=== PATIENT | female | born 1995 | race Caucasian/White ===

== ENCOUNTER 2020-11-08 12:26 | Emergency (ER) | payer BC, SELFPAY ==
[2020-11-08 12:45] VITALS: BP 134/83; PULSE 93; RESP 18; TEMP 36.9; O2SAT 97
--- NOTE | 2020-11-08 12:45 | ED.GENADULT ---
HPI - General Adult General Chief complaint: Headache Stated complaint: Headache Time Seen by Provider: 11/08/20 12:28 Source: patient Mode of arrival: ambulatory Limitations: no limitations History of Present Illness HPI narrative: Patient presents for evaluation of headache. She indicates symptoms started 3 days ago and have progressively worsened since that time. She initially had pain in the frontal and bilateral temporal regions but now has pain globally throughout the entire head. She is a current pain is 8-1/2 out of 1-10 in severity. She describes the pain as pressure . She denies any photophobia and phonophobia. She reports nausea and episode of vomiting yesterday. She has a hx of headaches but states that she has not spoken with her primary provider re: her symptoms. She has taken ibuprofen and tylenol without significant reduction in her pain. Denies any neurological changes. LMP 3 days ago. Related Data Home Medications Medication Instructions Recorded Confirmed zolpidem 11/08/20 Allergies Allergy/AdvReac Type Severity Reaction Status Date / Time pineapple Allergy Severe THROAT Verified 11/08/20 12:55 SWELLS coconut Allergy Mild HIVES Verified 11/08/20 12:55 amoxicillin Allergy Unknown Unknown Verified 11/08/20 12:55 clavulanic acid Allergy Unknown Unknown Verified 11/08/20 12:55 Review of Systems Review of Systems: Narrative: CONSTITUTIONAL: Denies fever, chills, or sweats. EYES: Denies visual changes, redness, or discharge. ENT: Denies rhinorrhea, congestion, sore throat, or otalgia. CARDIOVASCULAR: Denies chest pain, palpitations, or edema. RESPIRATORY: Denies cough or dyspnea. GASTROINTESTINAL: Denies abdominal pain, nausea, vomiting, or diarrhea. GENITOURINARY: Denies dysuria or hematuria. SKIN: Denies rash or itching. MUSCULOSKELETAL: Denies back pain, joint pain, or myalgia. NEUROLOGIC:Reports headaches. Denies numbness, dizziness, or weakness. PSYCHIATRIC: Denies anxiety or depression. [facility] Past Medical History Medical History Chronic headaches Family History Family History (Updated 11/08/20 @ 12:47 by Kevin Lance, SHREYA, LISANDRA) Mother No pertinent family history Social History Social History Alcohol intake: current Alcohol use details: Rare Additional living arrangements comments: significant other Gender identity (if verbalized by the patient): Female Spiritual care concerns: No Exam Narrative: Exam Narrative: GENERAL: Well-appearing, well-nourished, and in no acute distress. HEAD: Normocephalic, atraumatic. EYES: PERRLA and EOMI. ENT: Nares clear, no rhinorrhea or epistaxis. Mucous membranes moist. Oropharynx without tonsillar hypertrophy exudate or other lesions. Bilateral TMs pearly stanley nonbulging NECK: Supple. No adenopathy or masses. No carotid bruits or JVD CHEST: Clear to auscultation. No respiratory distress. No wheezes rales or rhonchi HEART: Regular rate and rhythm. No murmur heard. Normal peripheral pulses. ABDOMEN: Soft, nontender, nondistended, normal active bowel sounds. EXTREMITIES: Normal range of motion. No edema. SKIN: Warm, dry, no rash. NEURO: No focal deficits. Alert and oriented x3. Normal finger-nose exam, able to perform rapid alternating movements without difficulty. Comprehensive neurological exam intact. PSYCH: Normal mood and affect. Course Course Emergency Course: This is a 24-year-old female with history of headaches who presented with 3-day history of headache. She was neurologically intact on exam. She was given Fioricet, Reglan, Benadryl and IV fluids. On reassessment her pain decreased to 4 out of 10 in severity. I did offer her CT scan, which she declined. I think this is reasonable as she has a hx of headaches and symptoms have been present for three days. She was advised to follow up wi
[2020-11-08] MEDS: SODIUM CHLORIDE 0.9% IV 1,000 ML 999 ML IV CONT (13:06)
[2020-11-08] MEDS: diphenhydrAMINE HCl INJ 50 MG/ML VIAL 25 MG IV PUSH (13:09)
[2020-11-08] MEDS: METOCLOPRAMIDE HCL INJ 10 MG/2 ML VIAL IV PUSH (13:09)
[2020-11-08 14:33] VITALS: BP 114/80; PULSE 67; RESP 18; TEMP 36.3; O2SAT 99
== END 2020-11-08 14:33 | disposition home or self-care (01) ==
PROVIDERS: Emergency Provider Nurse Practitioner; PCP Family Medicine
DX: R51.9 Headache, unspecified (principal)
CPT/HCPCS: 96361; 96374; 96375; 99284; A9270; J1200; J2765; J7030

== ENCOUNTER 2021-01-27 15:12 | Emergency (ER) | payer BC, SELFPAY ==
--- NOTE | ~2021-01-27 | CT_ITS ---
EXAMINATION: CT abdomen pelvis w con EXAM DATE: 01/27/2021 22:21 INDICATION: Right lower quadrant pain. TECHNIQUE: Spiral CT of the abdomen and pelvis was performed following intravenous injection of 100 m L Omnipaque 350. Axial, coronal and sagittal images of the abdomen and pelvis were reviewed. The do se-length product (DLP) for this examination was 1063.59 mGy-cm. The exposure was tailored according to patient size (auto mA exposure control), and iterative reconstruction (ASIR) was used as addition al dose reduction technique. There is no prior study for comparison. FINDINGS: The liver, spleen, adrenal glands and pancreas are unremarkable. Gallbladder is unremarkab le. No biliary obstruction. Portal and splenic veins are patent. Kidneys enhance symmetrically. T here is no hydronephrosis. There is IUD which appears to be centrally located within the endometriu m, expected position. The bladder is unremarkable. There is no retroperitoneal or pelvic lymphadeno katie. The appendix is normal. The stomach and small bowel are unremarkable. There is expected amount of c olonic stool. No free intraperitoneal gas. The heart is normal in size. There are no pericardial or pleural effusions. The lung bases are unremarkable. There are no osteoblastic or osteolytic les ions identified. Chronic left L5 spondylolysis. No spondylolisthesis. IMPRESSION: 1. No acute intra-abdominal findings. Reviewed, dictated and finalized at location A.
[2021-01-27 15:15] VITALS: BP 134/89; PULSE 89; RESP 18; TEMP 36.4; O2SAT 98
[2021-01-27 15:32] LABS: Basophils Absolute Auto 0.1 K/mm3 (0.0-0.1); Basophils Percent Auto 0.7 % (0.2-1.2); Eosinophils Absolute Auto 0.1 K/mm3 (0-0.3); Eosinophils Percent Auto 1.2 % (0-4.4); Hematocrit 39.1 % (37.0-47.0); Hemoglobin 12.4 g/dL (12.0-15.0); Immature Granulocyte Absolute 0.03 K/mm3 (0.00-0.031); Immature Granulocyte Percent A 0.3 % (0-0.5); Lymphocytes Percent Auto 31.5 % (18.3-44.2); Mean Corpuscular HGB Conc 31.7 g/dl (32-36); Mean Corpuscular Hemoglobin 27.8 pg (26-34); Mean Corpuscular Volume 87.7 fl (80-100); Mean Platelet Volume 9.7 fl (7.4-10.4); Monocytes Absolute Auto 0.3 K/mm3 (0.1-0.6); Monocytes Percent Auto 3.8 % (2.6-8.5); Neutrophils Absolute Auto 5.6 K/mm3 (1.3-6.7); Neutrophils Percent Auto 62.5 % (45.5-73.1); Platelet Count Result 431 k/mm3 (150-375); Red Blood Count 4.46 M/mm3 (4.2-5.4); Red Cell Distribution Width 13.2 % (11.5-14.5); White Blood Count 8.9 K/mm3 (4.5-10.0)
[2021-01-27 15:42] LABS: Alanine Aminotransferase 21 U/L (4-35); Albumin Level 4.6 g/dL (3.5-5.1); Alkaline Phosphatase 80 U/L (38-126); Anion Gap 8 mmol/L (8-16); Aspartate Amino Transferase 21 U/L (14-36); Bilirubin,Total 0.3 mg/dL (0.2-1.3); Blood Urea Nitrogen 9 mg/dL (7-17); Carbon Dioxide 29 mmol/L (22-30); Chloride 103 mmol/L (98-107); Estimated CRCL calculation 112 ml/min; Estimated Glomerular Filt Rate > 60; Glucose 134 mg/dL (65-105); Lipase 120 U/L (23-300); Potassium 4.3 mmol/L (3.4-5.0); Sodium 140 mmol/L (137-145)
[2021-01-27 18:59] VITALS: BP 127/84; PULSE 68; RESP 18; O2SAT 100
--- NOTE | 2021-01-27 19:01 | PC.NURSE ---
patient attempting to give urine sample at this time.
--- NOTE | 2021-01-27 19:24 | ED.GENADULT ---
HPI - General Adult General Chief complaint: Abdominal Pain <Hany Gardner PA-C - Last Filed: 01/27/21 20:38> Stated complaint: pelvic pain <Hany Gardner PA-C - Last Filed: 01/27/21 20:38> Time Seen by Provider: 01/27/21 18:56 <ALIX Huizar Last Filed: 01/27/21 20:38> Source: patient <ALIX Huizar Last Filed: 01/27/21 20:38> Mode of arrival: ambulatory <Hany Gardner PA-C - Last Filed: 01/27/21 20:38> Limitations: no limitations <Hany Gardner PA-C - Last Filed: 01/27/21 20:38> History of Present Illness HPI narrative: Patient is a 25-year-old female who presents with a right lower quadrant abdominal pain that has been present for last couple of days patient notes 8 out of 10 pain in the right lower quadrant that radiates across the abdomen patient denies fever chills nausea vomiting patient took ibuprofen with minimal improvement today presents per private vehicle appears uncomfortable but not distressed <Hany Gardner PA-C - Last Filed: 01/27/21 20:38> Related Data Home medications: Home Medications Medication Instructions Recorded Confirmed zolpidem 11/08/20 <Hany Gardner PA-C - Last Filed: 01/27/21 20:38> Allergies/adverse reactions: Allergies Allergy/AdvReac Type Severity Reaction Status Date / Time pineapple Allergy Severe THROAT Verified 01/27/21 19:01 SWELLS coconut Allergy Mild HIVES Verified 01/27/21 19:01 amoxicillin Allergy Unknown Unknown Verified 01/27/21 19:01 clavulanic acid Allergy Unknown Unknown Verified 01/27/21 19:01 <Hany Gardner PA-C - Last Filed: 01/27/21 20:38> Review of Systems Review of Systems: All systems reviewed & are unremarkable except as noted in HPI and below <Hany Gardner PA-C - Last Filed: 01/27/21 20:38> [facility] Past Medical History Medical History: Medical History Chronic headaches <ALIX Huizar Last Filed: 01/27/21 20:38> Family History Family History: Family History (Updated 11/08/20 @ 12:47 by Kevin Lance, [facility], ) Mother No pertinent family history <Hany Gardner PA-C - Last Filed: 01/27/21 20:38> Social History Social History: Social History Alcohol intake: current Alcohol use details: Rare Additional living arrangements comments: significant other Gender identity (if verbalized by the patient): Female Spiritual care concerns: No <Hany Gardner PA-C - Last Filed: 01/27/21 20:38> Exam Narrative: Exam Narrative: GENERAL: Well-appearing, obese, and in no acute distress. HEAD: Normocephalic, atraumatic. EYES: PERRLA and EOMI. ENT: Nares clear, no rhinorrhea or epistaxis. Mucous membranes moist. CHEST: Clear to auscultation. No respiratory distress. No wheezes rales or rhonchi HEART: Regular rate and rhythm. No murmur heard. Normal peripheral pulses. ABDOMEN: Soft, right lower quadrant tenderness to palpation, nondistended, normal active bowel sounds. EXTREMITIES: Normal range of motion. No edema. SKIN: Warm, dry, no rash. NEURO: No focal deficits. Alert and oriented x3. PSYCH: Normal mood and affect. <Hany Gardner PA-C - Last Filed: 01/27/21 20:38> Course Course Emergency Course: Patient in the room at this time no distress will have CT imaging potential for urinary tract infection at this time however there is moderate squamous cells patient is aware of this <Hany Gardner PA-C - Last Filed: 01/27/21 20:38> Reevaluation(s) Reevaluation #1: Assumed care from BILLIE Gardner pending CT. <Yessica Rausch MD - Last Filed: 01/27/21 23:38> Date: 01/27/21 <Yessica Rausch MD - Last Filed: 01/27/21 23:38> Time: 21:30 <Yessica Rausch MD - Last Filed: 01/27/21 23:38> Reevaluation #2: Discussed with patient about CT results, labs resul
[2021-01-27 20:07] LABS: Add Urine Microscopic? YES; Appearance Urine Cloudy (Clear); Bacteria Urine Trace /hpf; Bilirubin Urine Negative (Negative); Blood Urine 2+ (Negative); Color Urine Yellow (Yellow); Glucose Urine UA Negative (Negative); Ketones Urine Negative (Negative); Leukocyte Esterase Ur 3+ LEU/UL (Negative); Mucus Urine Rare /lpf; Nitrate Urine Negative (Negative); Protein Urine Negative (Negative); Specific Grav Ur 1.016 (1.001-1.035); Squamous Epithelial Cell Urine Many /hpf (Few); Urobilinogen Urine Negative mg/dL (<2.0); WBC Urine 51-75 /hpf
[2021-01-27] MEDS: FAMOTIDINE 20 MG/2 ML VIAL IV PUSH (20:44)
[2021-01-27] MEDS: KETOROLAC 30 MG/ML VIAL (*BKC) IV PUSH (20:44)
[2021-01-27] MEDS: SODIUM CHLORIDE 0.9% IV 1,000 ML 999 ML IV CONT (20:47)
[2021-01-27 20:48] VITALS: BP 124/74; PULSE 64; O2SAT 100
[2021-01-27 23:04] VITALS: BP 111/73; PULSE 72; O2SAT 100
[2021-01-27] MEDS: DICYCLOMINE HCL INJ 20 MG/2 ML VIAL IM (23:15)
[2021-01-28 00:03] VITALS: BP 99/63; PULSE 69; RESP 14; O2SAT 100
== END 2021-01-28 00:02 | disposition home or self-care (01) ==
PROVIDERS: Emergency Medicine; Emergency Provider Emergency Medicine; PCP Family Medicine
DX: N39.0 Urinary tract infection, site not specified (principal); R10.31 Right lower quadrant pain
CPT/HCPCS: 36415; 74177; 80053; 81001; 81025; 83690; 85025; 87086; 87088; 96361; 96372; 96374; 96375; 99284; J0500; J1885; J7030; Q9967

== ENCOUNTER 2021-09-21 08:13 | Emergency (ER) | payer BC, SELFPAY ==
--- NOTE | ~2021-09-21 | CT_ITS ---
EXAMINATION: CT abdomen pelvis w con DATE: 09/21/2021 11:25 INDICATION: Mid to right-sided abdominal pain. TECHNIQUE: Computed tomography (CT) of the abdomen and pelvis was performed with 100 mL Omnipaque 350 intravenous contrast. Automated exposure control and iterative reconstruction technique were employe d. The dose-length product was 1202.76 mGy-cm. COMPARISON: CT abdomen and pelvis 01/27/2021 FINDINGS: The visualized portions of the lung bases are clear without pneumonia or pleural effusion. The heart size is normal. No pericardial effusion. The liver, gallbladder, spleen, pancreas, adrenal glands, and kidneys are normal. There is an intrauterine device in expected position. There are no di lated loops of bowel. The appendix is normal. There is a 3.0 cm cyst in right ovary. There are no pat hologically enlarged lymph nodes. There is no free intraperitoneal fluid. There is a chronic left L5 pars defect. IMPRESSION: 1. 3.0 cm cyst in right ovary, likely a follicular cyst. Reviewed, dictated and finalized at location A. [employer]
[2021-09-21 08:17] VITALS: BP 136/85; PULSE 108; RESP 18; TEMP 36.9; O2SAT 97
[2021-09-21 08:29] LABS: Basophils Percent Auto 0.3 % (0.2-1.2); Eosinophils Percent Auto 0.2 % (0-4.4); Hemoglobin 13.5 g/dL (12.0-15.0); Immature Granulocyte Absolute 0.03 K/mm3 (0.00-0.031); Immature Granulocyte Percent A 0.2 % (0-0.5); Lymphocytes Absolute Auto 0.51 K/mm3 (0.9-3.2); Mean Corpuscular HGB Conc 32.9 g/dl (32-36); Mean Corpuscular Hemoglobin 29.3 pg (26-34); Mean Corpuscular Volume 89.1 fl (80-100); Mean Platelet Volume 9.6 fl (7.4-10.4); Monocytes Absolute Auto 0.4 K/mm3 (0.1-0.6); Monocytes Percent Auto 3.1 % (2.6-8.5); Neutrophils Absolute Auto 11.6 K/mm3 (1.3-6.7); Neutrophils Percent Auto 92.2 % (45.5-73.1); Platelet Count Result 389 k/mm3 (150-375); Red Cell Distribution Width 13.1 % (11.5-14.5); White Blood Count 12.6 K/mm3 (4.5-10.0)
[2021-09-21] MEDS: SODIUM CHLORIDE 0.9% IV 1,000 ML 999 ML IV CONT ×2 (08:30→11:01)
[2021-09-21] MEDS: ONDANSETRON INJ 4 MG/2 ML VIAL IV PUSH ×2 (08:30→12:07)
--- NOTE | 2021-09-21 08:36 | ED.NAVMDI ---
HPI - Nausea/Vomiting/Diarrhea General Chief complaint: Nausea/Vomiting/Diarrhea Stated complaint: vomiting Time Seen by Provider: 09/21/21 08:21 Source: patient, family and RN notes reviewed Mode of arrival: ambulatory Limitations: no limitations History of Present Illness HPI Narrative: Patient is 25 years old white female presents with nausea, vomiting and diarrhea started last night with diffuse mid abdominal pain. Patient denies any fever or sick contact. Patient reports vomiting at least 7 times diarrhea at least 7 times. Patient does not take medicine at home, denies any history of abdominal surgery. Patient does not smoke or drink or uses marijuana Related Data Home Medications Medication Instructions Recorded Confirmed valacyclovir 1 gram tablet 1,000 mg PO DAILY 03/10/21 06/23/21 levonorgestrel 20 mcg/24 hours (7 1 insert INTRAUTERINE ONCE 05/20/21 06/23/21 yrs) 52 mg intrauterine device Allergies Allergy/AdvReac Type Severity Reaction Status Date / Time pineapple Allergy Severe THROAT Verified 06/23/21 10:53 SWELLS coconut Allergy Mild HIVES Verified 06/23/21 10:53 amoxicillin Allergy Unknown Unknown Verified 06/23/21 10:53 clavulanic acid Allergy Unknown Unknown Verified 06/23/21 10:53 hydrocodone AdvReac Mild Vomiting Verified 09/21/21 08:22 Review of Systems Review of Systems: CONSTITUTIONAL: Denies fever, chills, or sweats. EYES: Denies visual changes, redness, or discharge. ENT: Denies rhinorrhea, congestion, sore throat, or otalgia. CARDIOVASCULAR: Denies chest pain, palpitations, or edema. RESPIRATORY: Denies cough or dyspnea. GASTROINTESTINAL: Denies abdominal pain, nausea, vomiting, or diarrhea. GENITOURINARY: Denies dysuria or hematuria. SKIN: Denies rash or itching. MUSCULOSKELETAL: Denies back pain, joint pain, or myalgia. NEUROLOGIC: Denies headache, numbness, or weakness. PSYCHIATRIC: Denies anxiety or depression. [facility] Past Medical History Medical History Anemia Anxiety Asthma Chronic headaches History of miscarriage IBS (irritable bowel syndrome) Family History Family History Mother No pertinent family history Social History Social History Smoking status: Never smoker Alcohol intake: current Alcohol use details: Rare Substance use: never Additional living arrangements comments: significant other Gender identity (if verbalized by the patient): Female Spiritual care concerns: No Exam Narrative: General appearance: Well-developed, well-nourished Skin: Normal color Head: Normocephalic, nontraumatic Eyes: Clear conjunctiva ENT: Oropharynx normal, ears normal, nose normal Neck: Supple, nontender Chest and respiratory: Airway patent, no respiratory distress, no accessory muscle use Heart: Regular rate/rhythm Abdomen: Soft, nontender, no organomegaly, quiet bowel sounds Vascular: Normal peripheral pulses, normal capillary refill. Musculoskeletal: Normal range of motion, nontender back Neurologic: Alert and oriented ?3, [employer] is normal as tested, no gross motor deficit Course Course Emergency Course: Stable Vital Signs Vital signs: Vital Signs Temperature 36.9 C 09/21/21 08:17 Pulse Rate 108 H 09/21/21 08:17 Respiratory Rate 18 09/21/21 08:17 Blood Pressure 136/85 09/21/21 08:17 Pulse Oximetry 97 09/21/21 08:17 Temperature 36.9 C 09/21/21 08:17 Pulse Rate 71 09/21/21 10:31 Respiratory Rate 18 09/21/21 10:31 Blood Pressure 110/55 L 09/21/21 10:31 Pulse Oximetry 100 09/21/21 10:31
[2021-09-21 08:41] LABS: Alanine Aminotransferase 25 U/L (4-35); Albumin Level 4.8 g/dL (3.5-5.1); Alkaline Phosphatase 87 U/L (38-126); Anion Gap 8 mmol/L (8-16); Aspartate Amino Transferase 35 U/L (14-36); Bilirubin,Total 0.9 mg/dL (0.2-1.3); Blood Urea Nitrogen 12 mg/dL (7-17); Calcium 9.2 mg/dL (8.4-10.2); Carbon Dioxide 25 mmol/L (22-30); Chloride 106 mmol/L (98-107); Estimated CRCL calculation 126 ml/min; Estimated Glomerular Filt Rate > 60; Glucose 117 mg/dL (65-110); Lipase 79 U/L (23-300); Potassium 4.3 mmol/L (3.4-5.0); Sodium 139 mmol/L (137-145)
--- NOTE | 2021-09-21 09:30 | PC.NURSE ---
Pt still unable to urinate and refused straight catherization at this time. Pt will attempt to urinate again in approx 30 minutes
[2021-09-21 09:46] VITALS: BP 107/57; PULSE 87; RESP 18; O2SAT 100
[2021-09-21 10:16] VITALS: BP 117/82; PULSE 68; RESP 18; O2SAT 97
[2021-09-21 10:31] VITALS: BP 110/55; PULSE 71; RESP 18; O2SAT 100
[2021-09-21 11:13] VITALS: BP 116/71; PULSE 84; RESP 18; O2SAT 99
[2021-09-21 11:30] LABS: Add Urine Microscopic? YES; Appearance Urine Clear (Clear); Bilirubin Urine Negative (Negative); Blood Urine 2+ (Negative); Color Urine Yellow (Yellow); Glucose Urine UA Negative (Negative); Ketones Urine 1+ mg/dL (Negative); Leukocyte Esterase Ur Negative LEU/UL (Negative); Mucus Urine Rare /lpf; Nitrate Urine Negative (Negative); Protein Urine Negative (Negative); Specific Grav Ur 1.025 (1.001-1.035); Squamous Epithelial Cell Urine Occasional /hpf (Few); Urobilinogen Urine Negative mg/dL (<2.0); WBC Urine 0-3 /hpf
[2021-09-21] MEDS: KETOROLAC 30 MG/ML VIAL (*BKC) IV PUSH (11:45)
--- NOTE | 2021-09-21 13:00 | PC.NURSE ---
Pt drank 6oz apple juice and ate 3 packets of saltine crackers without any episodes of emesis.
[2021-09-21 13:24] VITALS: BP 116/70; PULSE 86; RESP 18; O2SAT 100
== END 2021-09-21 13:25 | disposition home or self-care (01) ==
PROVIDERS: Emergency Provider Emergency Medicine; PCP Family Medicine
DX: K52.9 Noninfective gastroenteritis and colitis, unspecified (principal); N83.201 Unspecified ovarian cyst, right side; J45.909 Unspecified asthma, uncomplicated; K58.9 Irritable bowel syndrome, unspecified; Z86.2 Personal history of diseases of the blood and blood-forming organs and certain disorders involving the immune mechanism
CPT/HCPCS: 36415; 51701; 74177; 80053; 81001; 81025; 83690; 85025; 96361; 96374; 96375; 96376; 99284; J1885; J2405; J7030; Q9967

== ENCOUNTER 2022-05-17 02:32 | Day surgery (SDC) | payer BC, SELFPAY ==
[2022-05-12 12:16] VITALS: BMI 39.0
[2022-05-12 12:47] VITALS: BMI 39.0
[2022-05-17 12:34] VITALS: BP 106/84; PULSE 78; RESP 18; TEMP 36.1; O2SAT 98
--- NOTE | 2022-05-17 12:56 | WPDANESEPPF ---
Anes - Initial Pre Proc Eval Procedure: Operation Date: 05/17/22 13:45 Proposed Procedures p Esophagogastroduodenoscopy & Colonoscopy - Alfred Mcdowell MD Date/Time: 05/17/22 12:56 Surgeon: Alfred Mcdowell MD Pre Op Diagnosis: nausea/vomiting; IBS diarrhea Patient Data Age: 26 Gender: F Height: 1.55 m Weight: 90.5 kg Last Vital Signs Temp 36.1 C L 05/17/22 12:34 Pulse 78 05/17/22 12:34 Resp 18 05/17/22 12:34 BP 106/84 05/17/22 12:34 Pulse Ox 98 05/17/22 12:34 O2 Del Method Room Air 05/17/22 12:34 Allergies Allergy/AdvReac Type Severity Reaction Status Date / Time pineapple Allergy Severe THROAT Verified 05/17/22 12:33 SWELLS coconut Allergy Mild HIVES Verified 05/17/22 12:33 amoxicillin Allergy Unknown Unknown Verified 05/17/22 12:33 clavulanic acid Allergy Unknown Unknown Verified 05/17/22 12:33 hydrocodone AdvReac Mild Vomiting Verified 05/17/22 12:33 Home Medications Medication Instructions Recorded Confirmed Type valacyclovir 1 gram tablet 1,000 mg PO DAILY 03/10/21 05/12/22 History levonorgestrel 20 mcg/24 hours (8 1 insert intrauterine ONCE 05/20/21 05/12/22 History yrs) 52 mg intrauterine device (Mirena) dicyclomine 10 mg capsule 10 - 20 mg PO QID #120 caps 01/27/22 05/12/22 Rx rifaximin 550 mg tablet (Xifaxan) 550 mg PO TID 14 days #42 tabs 01/27/22 05/12/22 Rx zolpidem 10 mg tablet 10 mg PO DAILY sleep 01/27/22 05/12/22 History rifaximin 550 mg tablet (Xifaxan) 550 mg PO DAILY #90 tabs 04/28/22 04/28/22 Rx Patient hx anesthesia problems: none Family hx anesthesia problems: none Results Review: All pre-operative results and documents have been reviewed as part of the pre-operative evaluation. [facility] Past Medical History Medical History Anemia Anxiety Asthma Chronic headaches History of miscarriage IBS (irritable bowel syndrome) Irritable bowel syndrome with diarrhea Lactose intolerance Nausea and vomiting Periumbilical pain Family History Family History Mother No pertinent family history Social History Social History Smoking status: Never smoker Alcohol intake: current Drinks per week: 1 Alcohol use details: Rare Substance use: never Substance use type: does not use Living arrangements: with family Additional living arrangements comments: significant other Gender identity (if verbalized by the patient): Female Spiritual care concerns: No Anes - Eval Final PreProcedure Day of Procedure 05/17/22 12:56 Patient weight: obese Heart: regular rate and rhythm Lungs: clear to auscultation Airway: Mallampati scale class II Neurological: alert and oriented Last oral intake: >/= 8 hours ASA classification: III Emergent: no Anesthesia type and monitoring: general GIVS and standard monitoring Results Review: All pre-operative results and documents have been reviewed as part of the pre-operative evaluation. Informed Consent: The patient's anesthetic plan and its attendant risks and benefits were discussed with the patient/family/POA. Questions were solicited and answers provided to the satisfaction of the patient/family/POA.
[2022-05-17] MEDS: LACTATED RINGERS 1,000 ML 150 ML IV CONT (12:58)
--- NOTE | 2022-05-17 13:05 | WPDHPUPDATE1 ---
History and Physical Update Update Date/Time: 05/17/22 13:05 History and Physical has been reviewed, including an updated exam of the patient. There are NO changes in the patient's condition. Risks, benefits, and alternatives have been discussed and questions answered. Patient agrees to proceed with procedure.
[2022-05-17 13:27] LABS: Beta HCG Quantitative < 2.39 mIU/ML
--- NOTE | 2022-05-17 13:46 | SUR.OPER ---
EGD ENDED AT 1339, COLONOSCOPY BEGAN AT 1344.
[2022-05-17 13:57] VITALS: BP 104/68; PULSE 84; RESP 23; O2SAT 95
[2022-05-17 14:07] VITALS: BP 106/72; PULSE 80; RESP 22; O2SAT 100
[2022-05-17 14:17] VITALS: BP 126/79; PULSE 77; RESP 25; O2SAT 100
== END 2022-05-17 14:26 | disposition home or self-care (01) ==
PROVIDERS: Anesthesiology; PCP Family Medicine; Visit Provider Internal Medicine Gastroenterology
PROC: 0DJ08ZZ Inspection of Upper Intestinal Tract, Via Natural or Artificial Opening Endoscopic (ICD-10-PCS; CPT 43235; principal; 2022-05-17 13:45)
DX: K58.0 Irritable bowel syndrome with diarrhea (principal); K64.8 Other hemorrhoids; K31.9 Disease of stomach and duodenum, unspecified; K29.70 Gastritis, unspecified, without bleeding; E66.9 Obesity, unspecified; Z68.37 Body mass index [BMI] 37.0-37.9, adult
CPT/HCPCS: 45380; 43239; 36415; 84702; 87081; 88305; 88342; J2704; J7120

== ENCOUNTER 2022-05-20 15:57 | Outpatient (CLI) | payer BC, SELFPAY ==
[2022-05-20 16:15] LABS: Hematocrit 40.1 % (37.0-47.0); Hemoglobin 13.1 g/dL (12.0-15.0); Mean Corpuscular HGB Conc 32.7 g/dl (32-36); Mean Corpuscular Hemoglobin 29.2 pg (26-34); Mean Corpuscular Volume 89.3 fl (80-100); Mean Platelet Volume 9.6 fl (7.4-10.4); Platelet Count Result 358 k/mm3 (150-375); Red Blood Count 4.49 M/mm3 (4.2-5.4); Red Cell Distribution Width 12.5 % (11.5-14.5); White Blood Count 8.9 K/mm3 (4.5-10.0)
[2022-05-20 17:04] LABS: Alanine Aminotransferase 29 U/L (6-35); Albumin Level 4.8 g/dL (3.5-5.1); Alkaline Phosphatase 94 U/L (38-126); Anion Gap 12 mmol/L (8-16); Aspartate Amino Transferase 23 U/L (14-36); Bilirubin,Total 0.5 mg/dL (0.2-1.3); Blood Urea Nitrogen 6 mg/dL (7-17); Calcium 9.3 mg/dL (8.4-10.2); Carbon Dioxide 27 mmol/L (22-30); Chloride 101 mmol/L (98-107); Estimated Glomerular Filt Rate > 60; Glucose 87 mg/dL (65-110); Potassium 3.9 mmol/L (3.4-5.0); Sodium 140 mmol/L (137-145)
[2022-05-20 17:14] LABS: Iron 98 ug/dL (37-170)
[2022-05-20 17:27] LABS: Percent Iron Saturation 27 % (20-50)
[2022-05-20 18:10] LABS: Folic Acid 4.8 ng/mL (2.76->20)
[2022-05-24 15:38] LABS: Vitamin D 1,25 (OH)2 Total 71 pg/mL (18-72); Vitamin D2 1,25 (OH)2 <8 pg/mL; Vitamin D3 1,25 (OH)2 71 pg/mL
[2022-05-29 13:09] LABS: Gliadin AB, IgG 3.7 U/mL (<15.0); TTG IGA AB 5.8 U/mL (<15.0)
== END 2022-05-20 15:58 | disposition home or self-care (01) ==
LOC: ANHLAB 16:01
PROVIDERS: PCP Family Medicine; Visit Provider Nurse Practitioner
DX: K90.0 Celiac disease (principal)
CPT/HCPCS: 36415; 80053; 82607; 82652; 82728; 82746; 83516; 83540; 83550; 84443; 85027

== ENCOUNTER 2022-06-11 00:37 | Emergency (ER) | payer BC, SELFPAY ==
--- NOTE | ~2022-06-11 | CT_ITS ---
EXAMINATION: CT abdomen pelvis w con DATE: 06/11/2022 03:12 INDICATION: Lower abdominal pain for 2 hours TECHNIQUE: Computed tomography (CT) of the abdomen and pelvis was performed with 100 CC Omnipaque 350 intravenous contrast. Automated exposure control and iterative reconstruction technique were employe d. Exam dose: 1126.46 mGy-cm total exam DLP. COMPARISON: 09/21/2021 CT abdomen pelvis FINDINGS: Lung bases are clear. Normal heart size. No pericardial or pleural effusion. The liver, gallbladder, spleen, pancreas and pancreatic and bile ducts are unremarkable. Normal morphology of the adrenal glands. No renal mass lesion or urinary tract calculus or hydroureteronephrosis. Normal caliber of the abdominal aorta. No intraperitoneal or retroperitoneal or pelvic mass lesion or adenopathy or ascites. There is an IUD within the uterus. The urinary bladder is unremarkable. Normal appendix. No bowel obstruction or intraperitoneal free air. Small fat-containing umbilical hernia. Included skeletal structures are unremarkable. IMPRESSION: Normal appendix; no bowel obstruction or free air IUD within uterus Reviewed, dictated and finalized at Location [facility]. Reviewed, dictated and finalized at location A. MARKER
[2022-06-11 00:47] VITALS: BP 118/71; PULSE 90; RESP 20; TEMP 36.2; O2SAT 99
[2022-06-11 01:30] LABS: Basophils Absolute Auto 0.1 K/mm3 (0.0-0.1); Basophils Percent Auto 0.6 % (0.2-1.2); Eosinophils Absolute Auto 0.2 K/mm3 (0-0.3); Eosinophils Percent Auto 2.3 % (0-4.4); Hematocrit 39.6 % (37.0-47.0); Hemoglobin 12.6 g/dL (12.0-15.0); Immature Granulocyte Absolute 0.02 K/mm3 (0.00-0.031); Immature Granulocyte Percent A 0.2 % (0-0.5); Lymphocytes Absolute Auto 2.94 K/mm3 (0.9-3.2); Mean Corpuscular HGB Conc 31.8 g/dl (32-36); Mean Corpuscular Hemoglobin 29.2 pg (26-34); Mean Corpuscular Volume 91.7 fl (80-100); Mean Platelet Volume 10.1 fl (7.4-10.4); Monocytes Absolute Auto 0.6 K/mm3 (0.1-0.6); Neutrophils Absolute Auto 4.6 K/mm3 (1.3-6.7); Neutrophils Percent Auto 54.9 % (45.5-73.1); Platelet Count Result 342 k/mm3 (150-375); Red Blood Count 4.32 M/mm3 (4.2-5.4); Red Cell Distribution Width 12.9 % (11.5-14.5); White Blood Count 8.4 K/mm3 (4.5-10.0)
[2022-06-11 01:36] LABS: Alanine Aminotransferase 32 U/L (6-35); Albumin Level 4.5 g/dL (3.5-5.1); Alkaline Phosphatase 80 U/L (38-126); Anion Gap 10 mmol/L (8-16); Aspartate Amino Transferase 29 U/L (14-36); Bilirubin,Total 0.4 mg/dL (0.2-1.3); Blood Urea Nitrogen 12 mg/dL (7-17); Calcium 9.3 mg/dL (8.4-10.2); Carbon Dioxide 25 mmol/L (22-30); Chloride 106 mmol/L (98-107); Estimated CRCL calculation 93 ml/min; Estimated Glomerular Filt Rate > 60; Glucose 98 mg/dL (65-110); Lipase 166 U/L (23-300); Potassium 4.1 mmol/L (3.4-5.0); Sodium 141 mmol/L (137-145)
--- NOTE | 2022-06-11 02:29 | ED.GENADULT ---
HPI - General Adult General Chief complaint: Abdominal Pain Stated complaint: abd pain Time Seen by Provider: 06/11/22 02:27 Source: RN notes reviewed History of Present Illness HPI narrative: Patient presents emergency department from home for abdominal pain. Patient states pain began approximately 2 hours prior to arrival pain is located bilateral lower abdomen and does not radiate described as sharp and stabbing in nature. States has been associated with nausea and diarrhea she denies any vomiting denies any fevers or chills. States did not take anything for the pain Related Data Home Medications Medication Instructions Recorded Confirmed valacyclovir 1 gram tablet 1,000 mg PO DAILY 03/10/21 05/20/22 levonorgestrel 20 mcg/24 hours (8 1 insert intrauterine ONCE 05/20/21 05/20/22 yrs) 52 mg intrauterine device (Mirena) zolpidem 10 mg tablet 10 mg PO DAILY sleep 01/27/22 05/20/22 Allergies Allergy/AdvReac Type Severity Reaction Status Date / Time pineapple Allergy Severe THROAT Verified 05/20/22 15:20 SWELLS coconut Allergy Mild HIVES Verified 05/20/22 15:20 amoxicillin Allergy Unknown Unknown Verified 05/20/22 15:20 clavulanic acid Allergy Unknown Unknown Verified 05/20/22 15:20 hydrocodone AdvReac Mild Vomiting Verified 05/20/22 15:20 Review of Systems Review of Systems: Gen.: Denies fevers or chills ENT: Denies congestion Respiratory: Denies shortness of breath or cough CV: Denies chest pain or palpitations GI: See HPI denies burning, urgency, frequency or hematuria Musculoskeletal: Denies back pain or muscle pain Neuro: Denies numbness, tingling, weakness or focal weakness Skin: Denies rash Except as documented, all other systems reviewed and negative PMF Past Medical History Medical History Anemia Anxiety Asthma Celiac disease Chronic headaches History of miscarriage IBS (irritable bowel syndrome) Irritable bowel syndrome with diarrhea Lactose intolerance Nausea and vomiting Periumbilical pain Family History Family History Mother No pertinent family history Social History Social History Smoking status: Never smoker Alcohol intake: current Drinks per week: 1 Alcohol use details: Rare Substance use: never Substance use type: does not use Additional living arrangements comments: significant other Gender identity (if verbalized by the patient): Female Spiritual care concerns: No Exam Narrative: APPEARANCE: No acute distress, nontoxic, resting in bed HEENT: Normocephalic, atraumatic, OMM RESPIRATORY: No respiratory distress, clear to auscultation bilaterally with no rhonchi wheezing or rales CARDIOVASCULAR: RRR s murmur ABDOMINAL: Soft nondistended tender palpation right lower quadrant and left lower quadrant no tenderness right upper quadrant left upper quadrant no rebound or guarding Pelvic: Normal external exam, but amount of thick white discharge in vaginal canal cervix is closed bilateral adnexal tenderness no cervical motion tenderness MUSCULOSKELETAl: Moves all extremities. No clubbing, cyanosis or edema. NEURO: Awake and alert. Following commands, speech normal, no focal deficits SKIN:: Warm, dry. Normal Color PSYCHIATRIC: Normal affect/mood Course Course Emergency Course: Patient states that they are feeling much better at this time. States abdominal pain has improved. Repeat abdominal exam shows the patient's abdomen to be soft with no surgical abdomen present discussed with patient results of workup and diagnosis. Discussed need for follow-up with primary care physician, reasons to return to the emergency department in proper use of medication. Patient understands and agrees to current treatment plan Vital Signs Vital signs: Vital Signs Temperature 97.2 F L 06/11/22 00:47 Pulse
[2022-06-11] MEDS: SODIUM CHLORIDE 0.9% IV 1,000 ML 999 ML IV CONT (02:41)
[2022-06-11] MEDS: KETOROLAC 30 MG/ML VIAL (*BKC) IV PUSH (02:42)
[2022-06-11] MEDS: ONDANSETRON INJ 4 MG/2 ML VIAL IV PUSH (02:42)
[2022-06-11 03:03] LABS: Appearance Urine Clear (Clear); Bilirubin Urine Negative (Negative); Blood Urine Negative (Negative); Color Urine Yellow (Yellow); Glucose Urine UA Negative (Negative); Ketones Urine Negative (Negative); Leukocyte Esterase Ur Trace LEU/UL (Negative); Nitrate Urine Negative (Negative); Protein Urine Negative (Negative); Urobilinogen Urine 0.2 mg/dL (<2.0)
[2022-06-11 03:12] LABS: Mucus Urine Rare /lpf; Squamous Epithelial Cell Urine Few /hpf (Few); WBC Urine 0-3 /hpf
[2022-06-11 03:21] LABS: Add Urine Microscopic? YES
[2022-06-11] MEDS: MORPHINE SULFATE (*CRX) 4 MG/ML INJ IV PUSH (05:03)
[2022-06-11] MEDS: metroNIDAZOLE 250 MG TABLET 500 MG PO (06:19)
== END 2022-06-11 06:20 | disposition home or self-care (01) ==
PROVIDERS: Emergency Provider Emergency Medicine; PCP Family Medicine
DX: N76.0 Acute vaginitis (principal); R10.32 Left lower quadrant pain; R10.31 Right lower quadrant pain; J45.909 Unspecified asthma, uncomplicated; K90.0 Celiac disease; K58.0 Irritable bowel syndrome with diarrhea; E73.9 Lactose intolerance, unspecified; Z86.2 Personal history of diseases of the blood and blood-forming organs and certain disorders involving the immune mechanism; Z97.5 Presence of (intrauterine) contraceptive device
CPT/HCPCS: 36415; 74177; 80053; 81001; 81025; 83690; 85025; 87070; 87491; 87591; 87808; 96361; 96374; 96375; 99284; A9270; J1885; J2270; J2405; J7030; Q9967

== ENCOUNTER 2023-01-04 09:33 | Outpatient (CLI) | payer BC, SELFPAY ==
--- NOTE | ~2023-01-04 | NM_ITS ---
EXAMINATION: NM hepatobiliary wo pharm DATE: 01/04/2023 12:34 INDICATION: Postprandial abdominal pain COMPARISON: CT dated 06/11/2022 TECHNIQUE: 4.8 mCi Tc-99m mebrofenin (Choletec) was administered intravenously. Scintigraphic images of the abdomen were obtained for one hour. At the 1 hour time point, the patient drank 8 oz Ensure, and imaging was continued for 60 minutes. Gallbladder ejection fraction was calculated by the technol ogtasia. FINDINGS: There is normal clearance of radiotracer from the blood pool. There is homogeneous tracer u ptake by the liver. Activity progresses to the bowel and gallbladder. The gallbladder ejection fract ion (GBEF) is 20%. Note that with this technique, normal GBEF >= 33%. IMPRESSION: 1. Gallbladder ejection fraction is below normal limits consistent with gallbladder dysfunction or c hronic cholecystitis in the appropriate clinical setting. Reviewed, dictated and finalized at location A. IMPRESSION: 1. Gallbladder ejection fraction is below normal limits consistent with gallbl adder dysfunction or chronic cholecystitis in the appropriate clinical setting.
== END 2023-01-04 09:34 | disposition home or self-care (01) ==
PROVIDERS: PCP Family Medicine; Visit Provider Nurse Practitioner
DX: K58.0 Irritable bowel syndrome with diarrhea (principal); R11.2 Nausea with vomiting, unspecified; R10.11 Right upper quadrant pain
CPT/HCPCS: 78226; A9537

== ENCOUNTER 2023-01-05 08:24 | Outpatient (CLI) | payer BC, SELFPAY ==
--- NOTE | ~2023-01-05 | US_ITS ---
US abdomen limited INDICATION: Irritable bowel syndrome. Diarrhea. PROCEDURE: Realtime right upper abdominal ultrasound. COMPARISON: 08/02/2019 FINDINGS: The pancreas is normal without focal mass or pancreatic ductal dilation. Liver echotexture is increased, consistent with fatty infiltration. There is normal directional flow in the portal ve in. The gallbladder is normal without stones, gallbladder wall thickening or pericholecystic fluid. Comm on bile duct measures 3 mm. No sonographic Fong's sign. IMPRESSION: 1: Hepatic steatosis. Reviewed, dictated and finalized at location [] IMPRESSION: 1: Hepatic steatosis.
== END 2023-01-05 08:25 | disposition home or self-care (01) ==
PROVIDERS: PCP Family Medicine; Visit Provider Nurse Practitioner
DX: K58.0 Irritable bowel syndrome with diarrhea (principal); R10.11 Right upper quadrant pain; R11.2 Nausea with vomiting, unspecified; K76.0 Fatty (change of) liver, not elsewhere classified
CPT/HCPCS: 76705

== ENCOUNTER 2023-02-21 12:36 | Outpatient (CLI) | payer BC, SELFPAY ==
[2023-02-21 14:40] LABS: Alanine Aminotransferase 38 U/L (6-35); Alkaline Phosphatase 52 U/L (38-126); Amylase 53 U/L (30-110); Aspartate Amino Transferase 27 U/L (14-36); Bilirubin,Total 0.4 mg/dL (0.2-1.3); Lipase 84 U/L (23-300)
== END 2023-02-21 12:37 | disposition home or self-care (01) ==
LOC: ANHSURGERY 12:38
PROVIDERS: PCP Family Medicine; Visit Provider Surgery
DX: Z01.818 Encounter for other preprocedural examination (principal); K81.1 Chronic cholecystitis
CPT/HCPCS: 36415; 80076; 82150; 83690; 86850; 86900; 86901

== ENCOUNTER 2023-02-24 01:03 | Day surgery (SDC) | payer BC, SELFPAY ==
[2023-02-15 15:25] VITALS: BMI 38.6
--- NOTE | 2023-02-15 15:33 | SUR.PREOP ---
Report to the Outpatient Waiting Room, entrance under the green pavilion located off [facility], at time _1130 on date __02/24/23 . Planned Procedure Time: _1;30 pm . Time changes happen often and if your time is changed the preop area will call you the afternoon before. - You and your visitor will be asked to self-screen and do not enter if you have any COVID symptoms. - A mask is optional within the hospital at this time. Patients may have clear liquids (water, carbonated beverages, clear teas, apple juice) until 3 hours prior to surgery with a maximum of 20 ounces. - No food from midnight until time of surgery - Infants may have breast milk until 4 hours before surgery, infant formula 6 hours prior to surgery. - Children will be allowed to drink immediately following surgery. If applicable, please bring a bottle or sippy cup to assist with drinking. Juice, water, soda, and popsicles are readily available. For infants on formula, please bring formula the day of surgery. Pacifiers are allowed. Take the following medications with a SIP of water the morning of surgery: _METHYLPHENIDATE BRING ALBUTEROL INHALER DAY OF SURGERY DO NOT STOP ANY OF YOUR OTHER PRESCRIPTION MEDICATIONS PRIOR TO SURGERY ?EXCEPT THE FOLLOWING Medications to discontinue per physician N/A Date to take last dose__N/A Please no make-up, nail british, hairspray, perfume, deodorant, or body powder the day of surgery. No jewelry (including any body piercings) or valuables the day of surgery, leave them at home. Please take a shower or bath the night before, or the morning of, surgery with an antibacterial soap. Wear comfortable, loose fitting clothing. Children are encouraged to wear pajamas. DENI SHOWER AM OF SURGERY - Jewelry must be removed prior to entering the operating room. Rings and piercings that are not removed may be cut off. - The hospital will not accept responsibility for valuables. - Please leave all valuables, including medications, at home the day of surgery. If you are going home after surgery, a licensed catering truck driver must drive you home. - NO public transportation without another adult if you receive anesthesia. - We recommend that an adult stay with you for 24 hours following discharge. - We also recommend that you do not drive, make important decision, drink alcoholic beverages, or take any drugs that were not prescribed by your health care provider for at least 24 hours after your discharge time. For Pediatric surgeries, we recommend two adults accompany the child home. Follow any additional instructions given to you from your surgeon. If you or anyone in your household have experienced Covid symptoms in the past week, please notify your surgeon or the nurse liaison at the phone number below for possible testing. Telephone instructions given to _MUNIR SCHMIDT and asked if any additional questions and then verbalized understanding. Patient advised to call surgeon office or pre surgery nurse liaison [phone] if any additional questions.
[2023-02-24] VITALS (8 sets, daily range): BP systolic 108–129; BP diastolic 64–90; PULSE 73–97; RESP 12–16; TEMP 36.1–36.6; O2SAT 91–100
[2023-02-24] MEDS: ACETAMINOPHEN 500 MG TABLET 1000 MG PO (10:37)
[2023-02-24] MEDS: INDOCYANINE GREEN 25 MG VIAL WITH DILUENT 3.75 MG IV PUSH (10:42)
[2023-02-24] MEDS: KETOROLAC 15 MG/ML VIAL (*BKC) IV PUSH (10:43)
[2023-02-24 11:08] LABS: Beta HCG Quantitative < 2.39 mIU/ML
--- NOTE | 2023-02-24 11:41 | PM.IMHP ---
H&P: HPI History of Present Illness Date/Time: 02/24/23 11:41 Chief Complaint: cholecystitis Narrative: Ms Chamorro is a 27 year old female that presents to the office at the request of She Gamino APRN for an evaluation of abdominal pain. Patient reports that she has had RUQ pain after eating fatty/greasy meals for about 10-12 years. Patient reports that she also has associated abdominal cramping and diarrhea with this pain. She states that it is has continue to worsen over the last 2-3 years. Patient states that now her she has pain across her whole abdomen. Patient had a RUQ US on 01/05/23 that showed hepatic steatosis. Patient had a HIDA scan on 01/04/23 a that showed GBEF 20%. She states that she had the pain about 10 minutes after drinking the Ensure. She states that the pain lasted about 30 minutes.? She states she is unsure if any family members had their gallbladder removed, but she states she has never asked either. She has cut out gluten completely since May 2022 due to being dx with celiac disease, she states that since then her symptoms have improved some just not resolved completely and believes she would benefit from having her gallbladder removed. Review of Systems Review of Systems: All systems reviewed & are unremarkable except as noted in HPI and below PMFSH Past Medical History Medical History Anemia Anxiety Asthma Biliary dyskinesia Celiac disease Chronic headaches History of miscarriage IBS (irritable bowel syndrome) Irritable bowel syndrome with diarrhea Lactose intolerance Nausea and vomiting Periumbilical pain RUQ pain Family History Family History Mother No problems noted. Other Cancer Diabetes mellitus Hypertension Social History Social History Smoking status: Never smoker Alcohol intake: current Drinks per week: 1 Alcohol use details: Rare Substance use: never Substance use type: does not use Living arrangements: with family Additional living arrangements comments: significant other Gender identity (if verbalized by the patient): Female Spiritual care concerns: No Meds Home Medications and Allergies Home Medications Medication Instructions Recorded Confirmed Type valacyclovir 1 gram tablet 1,000 mg PO DAILY 03/10/21 02/24/23 History levonorgestrel 21 mcg/24 hours (8 1 insert intrauterine ONCE 11/03/21 08/01/23 History yrs) 52 mg intrauterine device (Mirena) zolpidem 10 mg tablet 10 mg PO HS sleep 01/27/22 02/24/23 History ibuprofen 600 mg tablet 600 mg PO TID PRN pain #14 tabs 06/11/22 02/15/23 Rx amitriptyline 25 mg tablet 25 mg PO QHS #7 tabs 09/20/22 02/24/23 Rx dicyclomine 10 mg capsule See Rx Instructions .Route 12/14/22 02/24/23 Rx .COMPLEX #480 caps albuterol 90 mcg/actuation aerosol 90 mcg inhalation PRN 02/15/23 02/15/23 History inhaler methylphenidate HCl 54 mg 54 mg PO DAILY 02/15/23 02/24/23 History tablet,extended release 24 hr testosterone cypionate 200 mg/mL 200 mg subcut WEEKLY 02/15/23 02/24/23 History intramuscular oil Allergies Allergy/AdvReac Type Severity Reaction Status Date / Time pineapple Allergy Severe THROAT Verified 02/24/23 10:18 SWELLS amoxicillin Allergy Intermediate Diarrhea Verified 02/24/23 10:18 clavulanic acid Allergy Intermediate Muscle Pain Verified 02/24/23 10:18 coconut Allergy Mild HIVES Verified 02/24/23 10:18 hydrocodone AdvReac Mild Vomiting Verified 02/24/23 10:18 Vital Signs Vital Signs - 24 hr 02/24/23 10:12 Temperature 36.6 C Pulse Rate 89 Respiratory Rate 16 Blood Pressure 129/80 Pulse Oximetry 98 Oxygen Delivery Room Air Exam Const: General: cooperative, comfortable and no acute distress Resp: Auscultation: clear to auscultation bilaterally Cardio: Rate: regular rate Rhythm: regular
--- NOTE | 2023-02-24 11:46 | WPDHPUPDATE1 ---
History and Physical Update Update Date/Time: 02/24/23 11:46 History and Physical has been reviewed, including an updated exam of the patient. There are NO changes in the patient's condition. Risks, benefits, and alternatives have been discussed and questions answered. Patient agrees to proceed with procedure.
--- NOTE | 2023-02-24 12:06 | WPDANESEPPF ---
Anes - Initial Pre Proc Eval Procedure: Operation Date: 02/24/23 12:00 Proposed Procedures p Robotic Laparoscopic Cholecystectomy - Renetta Tello MD Date/Time: 02/24/23 12:06 Surgeon: Renetta Tello MD Pre Op Diagnosis: cholecystitis Patient Data Age: 27 Gender: F Height: 1.55 m Weight: 91 kg Last Vital Signs Temp 36.6 C 02/24/23 10:12 Pulse 89 02/24/23 10:12 Resp 16 02/24/23 10:12 BP 129/80 02/24/23 10:12 Pulse Ox 98 02/24/23 10:12 O2 Del Method Room Air 02/24/23 10:12 Allergies Allergy/AdvReac Type Severity Reaction Status Date / Time pineapple Allergy Severe THROAT Verified 02/24/23 10:18 SWELLS amoxicillin Allergy Intermediate Diarrhea Verified 02/24/23 10:18 clavulanic acid Allergy Intermediate Muscle Pain Verified 02/24/23 10:18 coconut Allergy Mild HIVES Verified 02/24/23 10:18 hydrocodone AdvReac Mild Vomiting Verified 02/24/23 10:18 Home Medications Medication Instructions Recorded Confirmed Type valacyclovir 1 gram tablet 1,000 mg PO DAILY 03/10/21 02/24/23 History levonorgestrel 21 mcg/24 hours (8 1 insert intrauterine ONCE 05/20/21 02/15/23 History yrs) 52 mg intrauterine device (Mirena) zolpidem 10 mg tablet 10 mg PO HS sleep 01/27/22 02/24/23 History ibuprofen 600 mg tablet 600 mg PO TID PRN pain #14 tabs 06/11/22 02/15/23 Rx amitriptyline 25 mg tablet 25 mg PO QHS #7 tabs 09/20/22 02/24/23 Rx dicyclomine 10 mg capsule See Rx Instructions .Route 12/14/22 02/24/23 Rx .COMPLEX #480 caps albuterol 90 mcg/actuation aerosol 90 mcg inhalation PRN 02/15/23 02/15/23 History inhaler methylphenidate HCl 54 mg 54 mg PO DAILY 02/15/23 02/24/23 History tablet,extended release 24 hr testosterone cypionate 200 mg/mL 200 mg subcut WEEKLY 02/15/23 02/24/23 History intramuscular oil Laboratory Tests 02/24/23 10:16 Beta HCG, Quant < 2.39 mIU/ML Patient hx anesthesia problems: none Family hx anesthesia problems: none Results Review: All pre-operative results and documents have been reviewed as part of the pre-operative evaluation. [facility] Past Medical History Medical History Anemia Anxiety Asthma Biliary dyskinesia Celiac disease Chronic headaches History of miscarriage IBS (irritable bowel syndrome) Irritable bowel syndrome with diarrhea Lactose intolerance Nausea and vomiting Periumbilical pain RUQ pain Family History Family History Mother No problems noted. Other Cancer Diabetes mellitus Hypertension Social History Social History Smoking status: Never smoker Alcohol intake: current Drinks per week: 1 Alcohol use details: Rare Substance use: never Substance use type: does not use Living arrangements: with family Additional living arrangements comments: significant other Gender identity (if verbalized by the patient): Female Spiritual care concerns: No Anes - Eval Final PreProcedure Day of Procedure 02/24/23 12:06 Patient weight: obese Heart: regular rate and rhythm Lungs: clear to auscultation Airway: Mallampati scale class II Neurological: alert and oriented Last oral intake: >/= 8 hours ASA classification: III Emergent: no Anesthetic plan: proceed Anesthesia type and monitoring: general ETT and standard monitoring Results Review: All pre-operative results and documents have been reviewed as part of the pre-operative evaluation. Informed Consent: The patient's anesthetic plan and its attendant risks and benefits were discussed with the patient/family/POA. Questions were solicited and answers provided to the satisfaction of the patient/family/POA.
[2023-02-24] MEDS: LACTATED RINGERS 1,000 ML 30 ML IV CONT ×2 (12:17→13:51)
[2023-02-24] MEDS: ceFAZolin 2 GM/D5W 50 ML 2 GM/50 ML BAG IVPB (12:53)
[2023-02-24] MEDS: BUPivacaine HCL 0.5% PF 30 ML VIAL INFILTRATE (13:26)
--- NOTE | 2023-02-24 13:49 | P.OP_ITS ---
Procedure Note - Detailed Date of Procedure 02/24/23 Pre-op Diagnosis chronic cholecystitis Post-op Diagnosis Same Procedure Performed Robotic assisted cholecystectomy Surgeon Renetta Tello MD Anesthesia General Indications 27-year-old female presenting to the office with upper abdominal pain. Workup c/w chronic cholecystitis. Findings moderate cholecystitis Description of Procedure The patient was taken to the operating room and placed in the supine position. After adequate induction of general anesthesia, the patient was prepped and draped in the normal sterile fashion. A time-out was then done to verify the patient's identity, as well as the procedure being performed. I began by making a 8 mm incision in the periumbilical region. A Veress needle was then placed in the peritoneal cavity and CO2 gas was insufflated. After adequate pneumoperitoneum was achieved, the Veress needle was removed and a 8 mm Optiview trocar was placed under direct visualization. Once into the abdominal cavity, the introducer was removed and the laparoscope was placed through this trocar site. Under direct visualization, I placed a further 8 mm port in the left mid abdomen and 2 additional 8 mm ports in the right mid abdomen. The robot was then docked to these ports sites. I then went to the console. The gallbladder was then identified and noted to be moderately inflamed. I was able to place a grasper at the dome of the gallbladder and this was retracted up and over the liver. A 2nd retractor was used to grasp the infundibulum and retracted laterally. This allowed visualization and dissection of the triangle of Calot. There were some omental adhesions to the gallbladder and these were taken down with the cautery. I then began dissection around the triangle Calot. I first identified the cystic duct, I was able to visualize the entirety of the duct from its proximal insertion into the gallbladder 2 at the distal junction with the common hepatic/common bile duct junction. I did use the firefly visualization at this point to confirm the anatomy. The proximal cystic duct was then further skeletonized, clipped, and transected. Next I visualized the cystic artery. Again the structure was skeletonized, clipped, and transected. I then again used firefly to confirm anatomy and no aberrant anatomy was noted. I then used the Bovie cautery to take down the peritoneal attachments of the gallbladder off the liver bed. Once the gallbladder specimen was completely detached, an Endo pouch was placed through the left mid abdominal 8 mm port site and the gallbladder specimen was placed in the endo-pouch and subsequently removed. I then re-examined the right upper quadrant. Hemostasis was noted in the liver bed and the clips were noted to be in good position on both the duct and the artery. No other pathology was seen in the right upper quadrant. All instruments were then removed and the robot was undocked. The abdomen was then desufflated and all ports were removed. All port sites were then closed with 4- 0 Monocryl subcuticular suture. Dermabond was placed on each was wound. The patient tolerated the procedure well and was extubated in the operating room postop. The patient will now be transferred to the recovery room in stable condition. Estimated Blood Loss 5 Drains No Packing No Pathology Yes Complications No immediate complications Condition Stable Disposition PACU [facility] Billing Surgery - Charge Forward: Surgery Billing
[2023-02-24] MEDS: ONDANSETRON INJ 4 MG/2 ML VIAL IV PUSH (14:25)
== END 2023-02-24 15:43 | disposition home or self-care (01) ==
PROVIDERS: Anesthesiology; PCP Family Medicine; Visit Provider Surgery
PROC: 0FT44ZZ Resection of Gallbladder, Percutaneous Endoscopic Approach (ICD-10-PCS; CPT 47562; principal; 2023-02-24 12:00)
DX: K81.1 Chronic cholecystitis (principal); K58.0 Irritable bowel syndrome with diarrhea; K90.0 Celiac disease; E73.9 Lactose intolerance, unspecified; D64.9 Anemia, unspecified; F41.9 Anxiety disorder, unspecified; J45.909 Unspecified asthma, uncomplicated; E66.9 Obesity, unspecified; Z68.37 Body mass index [BMI] 37.0-37.9, adult; Z79.51 Long term (current) use of inhaled steroids; Z79.891 Long term (current) use of opiate analgesic
CPT/HCPCS: 47562; S2900; 36415; 84702; 88304; A9270; J0690; J1100; J1170; J1885; J2250; J2405; J2704; J3010; J7030; J7120

== ENCOUNTER 2023-06-17 11:44 | Outpatient (CLI) | payer BC, SELFPAY ==
[2023-06-17 12:24] LABS: Basophils Absolute Auto 0.1 K/mm3 (0.0-0.1); Basophils Percent Auto 0.5 % (0.2-1.2); Eosinophils Absolute Auto 0.2 K/mm3 (0-0.3); Hematocrit 47.1 % (37.0-47.0); Hemoglobin 15.4 g/dL (12.0-15.0); Immature Granulocyte Absolute 0.02 K/mm3 (0.00-0.031); Immature Granulocyte Percent A 0.2 % (0-0.5); Lymphocytes Absolute Auto 2.16 K/mm3 (0.9-3.2); Lymphocytes Percent Auto 23.1 % (18.3-44.2); Mean Corpuscular HGB Conc 32.7 g/dl (32-36); Mean Corpuscular Hemoglobin 29.5 pg (26-34); Mean Corpuscular Volume 90.2 fl (80-100); Mean Platelet Volume 9.3 fl (7.4-10.4); Monocytes Absolute Auto 0.8 K/mm3 (0.1-0.6); Neutrophils Absolute Auto 6.2 K/mm3 (1.3-6.7); Neutrophils Percent Auto 66.2 % (45.5-73.1); Platelet Count Result 371 k/mm3 (150-375); Red Blood Count 5.22 M/mm3 (4.2-5.4); Red Cell Distribution Width 13.6 % (11.5-14.5); White Blood Count 9.4 K/mm3 (4.5-10.0)
[2023-06-21 12:09] LABS: Testosterone Total 655 ng/dL (2-45)
== END 2023-06-17 11:45 | disposition home or self-care (01) ==
PROVIDERS: PCP Family Medicine; Visit Provider Nurse Practitioner
DX: K90.0 Celiac disease (principal); F64.9 Gender identity disorder, unspecified; Z78.9 Other specified health status
CPT/HCPCS: 36415; 81376; 81382; 84403; 84443; 85025

== ENCOUNTER 2023-12-14 08:42 | Outpatient (CLI) | payer BC, SELFPAY ==
--- NOTE | ~2023-12-14 | CT_ITS ---
EXAMINATION: CT sinus wo con DATE: 12/14/2023 12:15 INDICATION: Chronic sinusitis TECHNIQUE: Computed tomography (CT) of the paranasal sinuses was performed without intravenous contra st. The dose-length product was 249.04 mGy-cm. Automated exposure control and iterative reconstructio n technique were employed. COMPARISON: None FINDINGS: There is no significant mucosal thickening or air-fluid level. Rightward nasal septal devia tion. There is a left-sided tna bullosa. No air-fluid levels or mucoperiosteal reaction. Mastoids are pneumatized. IMPRESSION: 1. No significant sinus disease. Reviewed, dictated and finalized at location B.
== END 2023-12-14 08:43 ==
PROVIDERS: PCP Allergy & Immunology; Visit Provider Allergy & Immunology
DX: J32.9 Chronic sinusitis, unspecified (principal)
CPT/HCPCS: 70486

== ENCOUNTER 2024-02-24 15:19 | Outpatient (CLI) | payer BC, SELFPAY ==
--- NOTE | ~2024-02-24 | US_ITS ---
EXAMINATION: US thyroid DATE: 02/24/2024 15:33 INDICATION: Thyroid nodule. TECHNIQUE: Multiple ultrasound images of the thyroid were obtained. COMPARISON: None. FINDINGS: The right thyroid lobe measures 3.4 x 1.1 x 1.3 cm. The left thyroid lobe measures 3.8 x 1.0 x 1.3 c m. There is normal echotexture and echogenicity throughout the thyroid gland. No discrete nodules id entified. Normal vascular flow is present. IMPRESSION: 1. Normal thyroid. Reviewed, dictated and finalized at location A. IMPRESSION: 1. Normal thyroid.
== END 2024-02-24 15:20 ==
LOC: MICIMG 15:20
PROVIDERS: PCP Otolaryngology; Visit Provider Otolaryngology
DX: E04.9 Nontoxic goiter, unspecified (principal)
CPT/HCPCS: 76536

== ENCOUNTER 2024-06-03 13:03 | Emergency (ER) | payer BC, SELFPAY ==
--- NOTE | ~2024-06-03 | XR_ITS ---
EXAM: XR knee LT 3V DATE: 06/03/2024 15:03 HISTORY: L knee pain x 2 weeks, felt pop WITH TWIST ROM INSTABILITY . COMPARISON: None available. FINDINGS: Normal mineralization. No fracture or dislocation. No lytic or blastic lesion. Small left knee joint effusion. Joint spaces are maintained. No erosion or periosteal change. Soft tissues withi n normal limits. IMPRESSION: No acute osseous finding in the left knee. Reviewed, dictated and finalized at location K. 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
[2024-06-03 13:36] VITALS: BP 142/93; PULSE 79; RESP 18; TEMP 36.3; O2SAT 98
--- NOTE | 2024-06-03 15:31 | ED_ITS ---
HPI - Extremity Injury (Lower) General Chief Complaint: Extremity Injury, Lower Stated Complaint: left knee pain Time Seen by Provider: 06/03/24 15:27 Source: patient Mode of arrival: ambulatory Limitations: no limitations History of Present Illness HPI Narrative: this is a 28-year-old female who presents to the ED for chief complaint of left knee pain following injury that occurred this morning. Patient states that she was working on the house and had her knee on the ground when she started to rotate position. States that the knee rolled and she felt a crack and pop in her left knee. She has had radiating pain superiorly and inferiorly from the knee since injury. States that she can not bear weight but it is painful. Denies any further sites of pain or injury. Denies numbness or weakness. Related Data Home Medications Medication Instructions Recorded Confirmed valacyclovir 1 gram tablet 1,000 mg PO DAILY 03/10/21 05/18/23 levonorgestrel 21 mcg/24 hr (up to 1 insert intrauterine ONCE 05/20/21 05/18/23 8 years) 52 mg intrauterine device (Mirena) zolpidem 10 mg tablet 10 mg PO HS sleep 01/27/22 05/18/23 albuterol 90 mcg/actuation aerosol 90 mcg inhalation PRN 02/15/23 05/18/23 inhaler methylphenidate HCl 54 mg 54 mg PO DAILY 02/15/23 05/18/23 tablet,extended release 24 hr testosterone cypionate 200 mg/mL 200 mg subcut WEEKLY 02/15/23 05/18/23 intramuscular oil Allergies Allergy/AdvReac Type Severity Reaction Status Date / Time pineapple Allergy Severe THROAT Verified 05/18/23 11:19 SWELLS amoxicillin Allergy Intermediate Diarrhea Verified 05/18/23 11:19 clavulanic acid Allergy Intermediate Muscle Pain Verified 05/18/23 11:19 coconut Allergy Mild HIVES Verified 05/18/23 11:19 hydrocodone AdvReac Mild Vomiting Verified 05/18/23 11:19 Review of Systems Review of Systems: All systems as dictated in [facility] Past Medical History Medical History (Updated 06/03/24 @ 15:33 by Leodan Uriarte PA-C) Anemia Anxiety Asthma Biliary dyskinesia Celiac disease Chronic headaches Hepatic steatosis History of miscarriage IBS (irritable bowel syndrome) Irritable bowel syndrome with diarrhea Lactose intolerance Nausea and vomiting Periumbilical pain RUQ pain Surgical History Surgical History Hx laparoscopic cholecystectomy robotic assisted cholecystectomy 02/24/[address] Tello Family History Family History Mother No problems noted. Father No problems noted. Sibling No problems noted. Other Cancer Diabetes mellitus Hypertension Social History Social History (Updated 05/18/23 @ 11:22 by CATARINA Sarabia) Smoking status: Never smoker Second hand tobacco smoke exposure: Yes Alcohol intake: current Drinks per week: 1 Alcohol use details: Rare Substance use: never Substance use type: does not use Lack of Transportation: No Lack of Food: Never True Current Housing: I Have Housing Concerned About Future Housing: No Difficulty Paying Gas/Electric Bills: No Difficulty Paying for Meds: No Currently Unemployed: No Education: High School Diploma/GED Difficulty w/ Childcare or Family Care: No Living arrangements: with family Additional living arrangements comments: significant other Occupation/Education: occupation Additional occupation/education comments: stay at home mother. Gender identity (if verbalized by the patient): Female Spiritual care concerns: No Exam Narrative: GENERAL: Well-appearing, well-nourished, and in no acute distress. HEAD: Normocephalic, atraumatic. MSK: Tenderness to the left knee joint at the medial joint line and lateral joint line. Full range of motion including full extension. Neurovascular intact distally. SKIN: Warm, dry, no rash. NEURO: Alert and oriented x4. No focal deficits. PSYCH: Normal mood and affect. Course Vital Signs Vital signs: Vital Signs Temperature 97.3 F L 06/03/24 13:36 Pulse Rate 79 06/03/24 13:36 Respiratory Rate 18 06/03/24 13:36 Blood Pressure 142/93 H 06/03/24 13:36 Pulse Oximetry 98 06/03/24 13:36 Temperature 97.3 F L 06/03/24 13:36 Pulse Rate 79 06/03/24 13:36 Respiratory Rate 18 06/03/24 13:36 Blood Pressure 142/93 H 06/03/24 13:36 Pulse Oximetry 98 06/03/24 13:36 MDM - Extremity Injury (Lower) MDM Narrative Medical decision making narrative: This is a 28-year-old female who presents to the ED for chief complaint left knee pain after injury this morning. Vitals are normal. Exam shows mild swelling and tenderness to the left knee. She is ambulatory without difficulty and able to fully extend the knee. Left knee x-rays do not show any acute osseous findings. Presentation consistent with soft tissue injury of L knee. Patient will be discharged in stable condition. Supportive measures discussed and return precautions given. Patient is understanding and agreeable with plan for discharge with PCP follow-up. Discharge Plan Discharge Clinical Impression: Injury of knee, left Patient Disposition: Home, Self-Care Condition: Stable Instructions: Antibiotic Form Additional Instructions: Your exam and imaging today are reassuring. No fracture or dislocation. Probable soft tissue injury present. Should be treated with regular anti- inflammatories. Follow-up with PCP on this issue. If you have any new or worsening symptoms please return to the ER for further evaluation. Prescriptions: No Action Mirena 20 mcg/24 hours (7 yrs) 52 mg intrauterine device 1 insert intrauterine ONCE Rx Instructions: as a single dose nystatin 100,000 unit/gram cream 1 applic topical BID Qty: 30 0RF Rx Instructions: apply a thin layer to affected areas twice daily for 7-10 days. (vulva) nystatin 100,000 unit/gram powder 1 applic topical BID Qty: 30 0RF Rx Instructions: apply a thin layer 1-2 times daily to prevent skin irritation. (groin) amitriptyline 25 mg tablet 25 mg PO QHS Qty: 90 3RF valacyclovir 1 gram tablet 1,000 mg PO DAILY zolpidem 10 mg tablet 10 mg PO HS methylphenidate HCl 54 mg tablet extended release 24hr 54 mg PO DAILY testosterone cypionate 200 mg/mL oil 200 mg subcut WEEKLY albuterol 90 mcg/actuation Aerosol 90 mcg INHALATION PRN dicyclomine 10 mg capsule See Rx Instructions .ROUTE .COMPLEX Qty: 720 3RF Dose Instruction: TAKE 1 TO 2 CAPSULES BY MOUTH 4 TIMES DAILY Rx Instructions: TAKE 1 TO 2 CAPSULES BY MOUTH 4 TIMES DAILY Follow-up/Referrals: Monika,MD Eddie [Non-Staff] - Time of Disposition: 15:35
== END 2024-06-03 15:41 | disposition home or self-care (01) ==
LOC: ANHED 15:37
PROVIDERS: Emergency Provider Physician Assistant; PCP Nurse Practitioner Family
DX: S89.92XA Unspecified injury of left lower leg, initial encounter (principal); J45.909 Unspecified asthma, uncomplicated; K90.0 Celiac disease; K58.0 Irritable bowel syndrome with diarrhea; E73.9 Lactose intolerance, unspecified; Z97.5 Presence of (intrauterine) contraceptive device; Z86.2 Personal history of diseases of the blood and blood-forming organs and certain disorders involving the immune mechanism; Z90.49 Acquired absence of other specified parts of digestive tract; Z77.22 Contact with and (suspected) exposure to environmental tobacco smoke (acute) (chronic); Z79.899 Other long term (current) drug therapy; Z79.890 Hormone replacement therapy; X50.9XXA Other and unspecified overexertion or strenuous movements or postures, initial encounter
CPT/HCPCS: 73562; 99283